=== PATIENT | male | born 1945 | race Caucasian/White ===

== ENCOUNTER 2022-05-11 12:28 | Emergency (ER) | payer MEDICARE, OTHER ==
[~2022-05-11] VITALS: Ht 182.9 cm; Wt 88.9 kg
[2022-05-11] MEDS ORDERED: NS IV 1000 ML 1,000 ML IV SCH (13:00)
--- NOTE | 2022-05-11 13:00 | ED GU-Male ---
General Chief Complaint: Rect Problems Stated Complaint: RECTAL BLEEDING Nursing Triage Note: PT AMBULATORY TO ROOM WITH PT . PT WAS SENT FROM [facility]. URGENT [facility]ARE STATES HE PRESENTED WITH URINARY SYMPTOMS, THEY DID A DIPSTICK, AND DIAGNOSED HIM WITH UTI. PT ALSO REPORTS HIGH HEARTRATE AND LOWER THAN NORMAL BLOOD PRESSURE AT HOME FOR LAST DAY AND A HALF. PT REPORTS FEELING FEVERISH YESTERDAY AND TODAY. PT STATES HE GOT UP FROM BED AT URGENT CARE AND NOTICED BRIGHT RED BLOOD ON THE SHEET. URGENT CARE REPORTS DOING A RECTAL EXAM AND THEY DID NOT FIND ANY HEMORRHOIDS OR FISSURES SO PT WAS SENT TO ED FOR EVAL OF RECTAL BLEEDING. PT A&OX4, SPEECH NORMAL ON ARRIVAL Source: patient, family Exam Limitations: no limitations History of Present Illness Date Seen by Provider: May 11, 2022 Time Seen by Provider: 12:45 Initial Comments Patient is a 76-year-old male who presents to the emergency room directed [place] [facility] [place] chief complaint of generalized fatigue and malaise, decreased appetite since yesterday with dysuria and urgency. He apparently was going to be discharged when he got off the stretcher that he noticed a significant amount of blood where he had been sitting and he had bright red blood in his underwear. Patient states he has a history of hemorrhoids that he has been fighting for "years" and they only bleed when they are inflamed. He has been having to strain quite a bit in recent days. Reportedly the prac titioner at urgent care saw no external hemorrhoids or signs of fissure on her examination. They also reported that his heart rate was in the 110 range and his blood pressure yesterday was about 89 systolic. Blood pressure on arrival here is greater than 100. He is afebrile. He does feel quite fatigued. He has never had a urinary tract infection. All other ROS reviewed and negative except as stated Timing/Duration: yesterday Severity/Quality: moderate Location: urethral Radiation: none Activities at Onset: none Modifying Factors: Improves With Other (weak, devreased appetite) Associated Symptoms: dysuria, other (decreased appetitie) Allergies and Home Medications Allergies Coded Allergies: acetaminophen (Verified Allergy, Unknown, ITCHING, 05/11/22) zonisamide (Verified Allergy, Unknown, ITCHING, 05/11/22) Patient Home Medication List Home Medication List Reviewed: Yes Review of Systems Review of Systems Constitutional: see HPI EENTM: no symptoms reported Respiratory: no symptoms reported Cardiovascular: no symptoms reported Gastrointestinal: other (blood per rectum) Genitourinary: burning, dysuria Musculoskeletal: no symptoms reported Psychiatric/Neurological: No Symptoms Reported All Other Systemes Reviewed Negative Unless Noted: Yes Past Kubzxcz-Ptrwxr-Orwpkh Hx Patient Social History Tobacco Use?: No Use of E-Cig and/or Vaping dev: No Substance use?: No Alcohol Use?: No Immunizations Up To Date Influenza Vaccine Up-to-Date: No; Not Current Physical Exam Vital Signs Vital Signs - First Documented 05/11/22 12:33 Temp 37.4 Pulse 98 Resp 26 B/P (MAP) 148/81 (103) Pulse Ox 97 Capillary Refill : Height, Weight, BMI Height: '" Weight: lbs. oz. kg; 26.00 BMI Method: General Appearance: WD/WN, no apparent distress HEENT: other (dry oral mucosa) Neck: full range of motion Cardiovascular: regular rate, rhythm Respiratory: lungs clear, normal breath sounds, no respiratory distress, no accessory muscle use Gastrointestinal: normal bowel sounds, non tender, soft Male: normal genitalia Genital/Rectal: other (rectal - obvious bright red blood at the anus with circumferential hemmorhoids visible - no active bleeding; nontender; no obvious thrombosed hemorhoids - I was able to gently reduce all of them) Extremities: normal range of motion, normal inspection Neurologic/Psychiatric: alert, normal mood/affect, oriented x 3 Skin: normal color, warm/dry Progress/Results/Core Measures Suspected Sepsis SIRS Temperature: Pulse: 98 Respiratory Rate: 26 Laboratory Tests 05/11/22 12:40: White Blood Count 14.3H Blood Pressure 148 /81 Mean: 103 Laboratory Tests 05/11/22 12:40: Creatinine 1.27, Platelet Count 217 Results/Orders Lab Results Laboratory Tests Test 05/11/22 12:40 05/11/22 12:45 Range/Units White Blood Count 14.3 H 4.3-11.0 10^3/uL Red Blood Count 4.64 4.30-5.52 10^6/uL Hemoglobin 13.7 13.3-17.7 g/dL Hematocrit 39 L 40-54 % Mean Corpuscular Volume 85 80-99 fL Mean Corpuscular Hemoglobin 30 25-34 pg Mean Corpuscular Hemoglobin Concent 35 32-36 g/dL Red Cell Distribution Width 13.2 10.0-14.5 % Platelet Count 217 130-400 10^3/uL Mean Platelet Volume 9.9 9.0-12.2 fL Immature Granulocyte % (Auto) 1 % Neutrophils (%) (Auto) 89 H 42-75 % Lymphocytes (%) (Auto) 5 L 12-44 % Monocytes (%) (Auto) 5 0-12 % Eosinophils (%) (Auto) 0 0-10 % Basophils (%) (Auto) 0 0-10 % Neutrophils # (Auto) 12.7 H 1.8-7.8 10^3/uL Lymphocytes # (Auto) 0.7 L 1.0-4.0 10^3/uL Monocytes # (Auto) 0.7 0.0-1.0 10^3/uL Eosinophils # (Auto) 0.0 0.0-0.3 10^3/uL Basophils # (Auto) 0.1 0.0-0.1 10^3/uL Immature Granulocyte # (Auto) 0.1 0.0-0.1 10^3/uL Neutrophils % (Manual) 88 % Lymphocytes % (Manual) 8 % Monocytes % (Manual) 4 % Blood Morphology Comment NORMAL Sodium Level 130 L 135-145 MMOL/L Potassium Level 4.0 3.6-5.0 MMOL/L Chloride Level 96 L 98-107 MMOL/L Carbon Dioxide Level 23 21-32 MMOL/L Anion Gap 11 5-14 MMOL/L Blood Urea Nitrogen 18 7-18 MG/DL Creatinine 1.27 0.60-1.30 MG/DL Estimat Glomerular Filtration Rate 58 BUN/Creatinine Ratio 14 Glucose Level 107 H 70-105 MG/DL Calcium Level 9.2 8.5-10.1 MG/DL Urine Color YELLOW Urine Clarity CLEAR Urine pH 5.5 5-9 Urine Specific [place] >=1.030 1.016-1.022 Urine Protein 1+ H NEGATIVE Urine Glucose (UA) NEGATIVE NEGATIVE Urine Ketones 2+ H NEGATIVE Urine Nitrite NEGATIVE NEGATIVE Urine Bilirubin 1+ H NEGATIVE Urine Urobilinogen 1.0 < = 1.0 MG/DL Urine Leukocyte Esterase TRACE H NEGATIVE Urine RBC (Auto) 3+ H NEGATIVE Urine RBC 5-10 H /HPF Urine WBC 5-10 H /HPF Urine Squamous Epithelial Cells 0-2 /HPF Urine Crystals NONE /LPF Urine Bacteria FEW H /HPF Urine Casts NONE /LPF Urine Mucus SMALL H /LPF Urine Culture Indicated YES My Orders Orders - JOSÉ LUIS LEDBETTER MD Cbc With Automated Diff (05/11/22 12:53) Basic Metabolic Panel (05/11/22 12:53) Ua Culture If Indicated (05/11/22 12:53) Ns Iv 1000 Ml (Sodium Chloride 0.9%) (05/11/22 13:00) Manual Differential (05/11/22 12:40) Urine Culture (05/11/22 12:45) Ciprofloxacin Iv 400mg/200ml (Cipro Iv S (05/11/22 14:30) Acetaminophen Tablet (Tylenol Tablet) (05/11/22 14:30) Medications Given in ED Current Medications Medications Dose Ordered Sig/Jeremie Route Start Time Stop Time Status Last Admin Dose Admin Ciprofloxacin/ Dextrose 200 ml @ 200 mls/hr ONCE ONCE IV 05/11/22 14:30 05/11/22 15:29 05/11/22 14:35 200 MLS/HR Vital Signs/I&O 05/11/22 05/11/22 05/11/22 12:33 13:30 14:12 Temp 37.4 37.4 37.8 Pulse 98 Resp 26 B/P (MAP) 148/81 (103) Pulse Ox 97 Capillary Refill : Blood Pressure Mean: 103 Departure Impression Primary Impression: Urinary tract infection Qualified Codes: N39.0 - Urinary tract infection, site not specified; R31.9 - Hematuria, unspecified Additional Impression: Hemorrhoids Qualified Codes: K64.9 - Unspecified hemorrhoids Disposition: HOME, SELF-CARE Condition: Stable Departure-Patient Inst. Decision time for Depature: 15:01 Referrals: MARY FREY DO (PCP/Family) Primary Care Physician Patient Instructions: Urinary Tract Infections in Adults Add. Discharge Instructions: Take the antibiotics as directed for the next 10 days for your bladder infection. Drink lots of fluids to stay well-hydrated. You should take xioe-out-aoxyusy ibuprofen 2 tablets which is 400 mg every 6 hours with little food as needed for pain/fever over 100.4. Sitz bath's for your hemorrhoids as well as Tucks medicated pads with witch marry, Preparation H with lidocaine cream will also help. Take a daily stool softener to help avoid straining. Do this twice a day. If you develop worsening symptoms after 1 to 2 days on antibiotics, high fever, vomiting or any other emergent, concerning symptoms please come back to the emergency room for reevaluation. Follow-up with Dr. Frey in a week to 10 days. Scripts Ondansetron (Ondansetron Odt) 4 Mg Tab.rapdis 4 MG SL Q8H PRN for NAUSEA/VOMITING, #12 TAB Prov: JOSÉ LUIS LEDBETTER MD 05/11/22 Ciprofloxacin HCl (Ciprofloxacin HCl) 500 Mg Tablet 500 MG PO BID, #19 TAB Prov: JOSÉ LUIS LEDBETTER MD 05/11/22 Copy Copies To 1: MARY FREY KATHRYN M MD May 11, 2022 13:00
[2022-05-11 13:01] LABS: BASOPHILS # (AUTO) 0.1 10^3/uL (0.0-0.1); BASOPHILS % (AUTO) 0 % (0-10); EOSINOPHILS % (AUTO) 0 % (0-10); HEMATOCRIT 39 % (40-54); HEMOGLOBIN 13.7 g/dL (13.3-17.7); LYMPHOCYTES # (AUTO) 0.7 10^3/uL (1.0-4.0); LYMPHOCYTES % (AUTO) 5 % (12-44); MEAN CORPUSCULAR HEMOGLOBIN 30 pg (25-34); MEAN CORPUSCULAR HGB CONC 35 g/dL (32-36); MEAN CORPUSCULAR VOLUME 85 fL (80-99); MEAN PLATELET VOLUME 9.9 fL (9.0-12.2); MONOCYTES # (AUTO) 0.7 10^3/uL (0.0-1.0); MONOCYTES % (AUTO) 5 % (0-12); NEUTROPHILS # (AUTO) 12.7 10^3/uL (1.8-7.8); NEUTROPHILS % (AUTO) 89 % (42-75); PLATELET COUNT 217 10^3/uL (130-400); WHITE BLOOD COUNT 14.3 10^3/uL (4.3-11.0)
[2022-05-11 13:07] LABS: CALCIUM 9.2 MG/DL (8.5-10.1)
[2022-05-11 13:12] LABS: CREATININE SERUM 1.27 MG/DL (0.60-1.30)
[2022-05-11 13:14] LABS: BILIRUBIN,URINE 1+ (NEGATIVE); CLARITY,URINE CLEAR; COLOR,URINE YELLOW; GLUCOSE, URINE (UA) NEGATIVE (NEGATIVE); KETONES,URINE 2+ (NEGATIVE); LEUKOCYTE ESTERASE ,URINE TRACE (NEGATIVE); NITRITE,URINE NEGATIVE (NEGATIVE); PH,URINE 5.5 (5-9); PROTEIN,URINE 1+ (NEGATIVE)
[2022-05-11 13:23] LABS: BACTERIA,URINE FEW /HPF; SQUAMOUS EPITHELIAL CELL,UR 0-2 /HPF
[2022-05-11 13:48] LABS: LYMPHOCYTES % (MANUAL) 8 %; MONOCYTES % (MANUAL) 4 %; NEUTROPHILS % (MANUAL) 88 %; RBC MORPH NORMAL
[2022-05-11] MEDS ORDERED: CIPROFLOXACIN IV 400MG/200ML 200 ML IV ONE (14:30)
[2022-05-11] MEDS ORDERED: ACETAMINOPHEN 500 MG TAB (TYLENOL) PO ONE (14:30)
[2022-05-11] MEDS ORDERED: CIPR500T5 PO (15:03)
[2022-05-11] MEDS ORDERED: ONDA4TAB11 SL (15:03)
[2022-05-11 15:41] VITALS: BP 146/83
== END 2022-05-11 15:42 | disposition home or self-care (01) ==
LOC: EDUNIT# 12:28 → ER 12:30
DX: N39.0 Urinary tract infection, site not specified (principal); K64.9 Unspecified hemorrhoids
CPT/HCPCS: 36415; 80048; 81000; 85007; 85027; 87077; 87088; 87186